=== PATIENT | female | born 1950 | race Caucasian/White ===

== ENCOUNTER 2017-08-27 21:22 | Inpatient (IN) | payer OTHER ==
[~2017-08-27] VITALS: Ht 172.7 cm; Wt 117.9 kg
[~2017-08-27 21:22] MED LIST: ALLEGRA-D 241 TABLET PO; AVENTYL,PAMELOR50 MG PO; CELEBREX200 MG PO; CLIMARA0.05 MG PO; DAPSONE100 MG PO; DAPSONE25 MG PO; DILAUDID2 MG PO; DULERA 200 MCG/13 GM IH; DURAGESIC100 MCG PO; FLONASE16 G1 NS; GRALISE600 MG PO; LEVAQUIN750 MG PO; LEVO-T50 MCG PO; LIDOCAINE700 MG TD; METHADONE10 MG PO; MISOPROSTOL200 MCG PO; NORTRIPTYLINE H50 MG PO; OMEPRAZOLE40 M1 PO; OPANA10 MG PO; PROAIR HFA8.5 GM IH; PROTONIX40 MG PO; TOPAMAX100 MG PO; TOPAMAX50 MG PO; TRAMADOL HCL200 MG PO; TRAMADOL HCL50 MG PO; ULTRAM ER200 MG PO; VAGIFEM10 MCG VG; VENTOLIN HFA18 GM IH
[2017-08-27 22:20] LABS: HEMATOCRIT 35.9 % (36.0-46.0); HEMOGLOBIN 12.1 G/DL (11.9-15.5); MCH 33.2 PG (29.0-34.0); MCHC 33.7 G/DL (30.0-36.0); MCV 98.6 FL (83-99); PLATELET COUNT 352 K/uL (156-360); RBC DIS.WIDTH-SD 43.4 % (39-53); RED BLOOD COUNT 3.64 M/uL (3.80-5.20); WHITE BLOOD COUNT 11.4 K/uL (4.1-10.2)
[2017-08-27 22:37] LABS: CHLORIDE 98 mEq/L (99-109); POTASSIUM 3.1 mEq/L (3.7-5.4); SODIUM 132 mEq/L (136-147)
[2017-08-27 22:40] LABS: ALBUMIN 4.3 g/dL (3.2-4.8)
[2017-08-27 22:42] LABS: GLUCOSE 125 mg/dL (70-99); TOTAL BILIRUBIN 0.4 mg/dL (0.0-1.0)
[2017-08-27 22:46] LABS: ALKALINE PHOSPHATASE 112 IU/L (3-129); CREATININE 0.8 mg/dL (0.6-1.3); GFR ESTIMATE (CALCULATED) > 59 mL/min/
[2017-08-27 22:47] LABS: AST (GOT) 21 IU/L (2-34); UREA NITROGEN (BUN) 9 mg/dL (9-23)
[2017-08-27 22:49] LABS: ALT (GPT) 26 IU/L (3-49)
[2017-08-27 23:50] LABS: BASE EXCESS -1.7 mEq/L (-3 to +3); CARBOXY HGB 0 % (0-5); COMMENTS - BLOOD GASES A+C+; DEVICE NC; METHEMOGLOBIN 43.1 % (0-1.5); O2 FLOW 4 L/MIN; PCO2 38 mm Hg (35-45); PO2 98 mm Hg (80-100); SITE RR; TOTAL RESP RATE 20 resp/min; pH 7.39 (7.35-7.45)
[2017-08-28] VITALS (18 sets, daily range): BP systolic 93–190; BP diastolic 61–111
[2017-08-28] MEDS ORDERED: NORTRIPTYLINE H75 MG PO (01:31)
[2017-08-28] MEDS ORDERED: GABAPENTIN300 MG PO (01:33)
[2017-08-28] MEDS ORDERED: FUROSEMIDE20 MG PO (01:33)
[2017-08-28] MEDS ORDERED: SODIUM CHLORIDE1 G1 PO ×2 (01:34→01:42)
[2017-08-28] MEDS ORDERED: PREDNISONE10 MG PO (01:34)
[2017-08-28] MEDS ORDERED: TOPIRAMATE100 MG PO (01:35)
[2017-08-28] MEDS ORDERED: SYMBICORT60 INHALAT IH (01:37)
[2017-08-28] MEDS ORDERED: ESTRING1 EACH VG (01:38)
[2017-08-28 03:34] LABS: BASE EXCESS -1.9 mEq/L (-3 to +3); BICARBONATE 23.7 mEq/L (22-26); CARBOXY HGB 0 % (0-5); pH 7.35 (7.35-7.45)
[2017-08-28 03:35] LABS: COMMENTS - BLOOD GASES A+C+; DEVICE NRBM; FI02 100 %; METHEMOGLOBIN 13.7 % (0-1.5); O2 FLOW 15 L/MIN; PCO2 43 mm Hg (35-45); PO2 439 mm Hg (80-100); SITE RR; TOTAL RESP RATE 18 resp/min
[2017-08-28 10:41] LABS: BASE EXCESS -1.2 mEq/L (-3 to +3); BICARBONATE 24.3 mEq/L (22-26); CARBOXY HGB 0 % (0-5); COMMENTS - BLOOD GASES +C; DEVICE NC; O2 FLOW 6 L/MIN; PCO2 43 mm Hg (35-45); PO2 131 mm Hg (80-100); SITE RR +A; TOTAL RESP RATE 20 resp/min; pH 7.36 (7.35-7.45)
[2017-08-28 10:42] LABS: METHEMOGLOBIN 24.9 % (0-1.5)
[2017-08-28 18:00] LABS: BASE EXCESS -0.7 mEq/L (-3 to +3); BICARBONATE 25.8 mEq/L (22-26); CARBOXY HGB 0 % (0-5); PO2 126 mm Hg (80-100); pH 7.32 (7.35-7.45)
[2017-08-28 18:01] LABS: PCO2 50 mm Hg (35-45)
[2017-08-28 18:02] LABS: COMMENTS - BLOOD GASES +C; DEVICE NC; METHEMOGLOBIN 10.5 % (0-1.5); O2 FLOW 6 L/MIN; SITE LR +A; TOTAL RESP RATE 18 resp/min
[2017-08-29] VITALS (22 sets, daily range): BP systolic 139–184; BP diastolic 74–129
[2017-08-29 05:14] LABS: BASE EXCESS 0.4 mEq/L (-3 to +3); CARBOXY HGB 0 % (0-5); PO2 108 mm Hg (80-100); pH 7.37 (7.35-7.45)
[2017-08-29 05:15] LABS: COMMENTS - BLOOD GASES A+C+; DEVICE NAS CAN; O2 FLOW 6 L/MIN; PCO2 45 mm Hg (35-45); SITE LEFT RADIAL; TOTAL RESP RATE 20 resp/min
[2017-08-29 05:44] LABS: BASOPHIL (%) 0.8 % (0-1); BASOPHIL COUNT 0.1 K/uL (0-0.1); EOSINOPHIL (%) 2.4 % (0-5); EOSINOPHIL COUNT 0.2 K/uL (0-0.3); HEMATOCRIT 32.7 % (36.0-46.0); HEMOGLOBIN 10.7 G/DL (11.9-15.5); IMMATURE GRANULOCYTE (%) 0.3 % (0.0-0.7); LYMPHOCYTE (%) 21.4 % (15-42); LYMPHOCYTE COUNT 1.3 K/uL (1.0-2.8); MCH 33.1 PG (29.0-34.0); MCHC 32.7 G/DL (30.0-36.0); MCV 101.2 FL (83-99); MONOCYTE (%) 8.1 % (3-12); MONOCYTE COUNT 0.5 K/uL (0-0.8); NEUTROPHIL COUNT 4.2 K/uL (1.8-6.4); PLATELET COUNT 293 K/uL (156-360); RBC DIS.WIDTH-CV 12.7 % (11.8-14.6); RBC DIS.WIDTH-SD 47.6 % (39-53); RED BLOOD COUNT 3.23 M/uL (3.80-5.20); WHITE BLOOD COUNT 6.3 K/uL (4.1-10.2)
[2017-08-29 06:00] LABS: CHLORIDE 101 MEQ/L (99-109); CREATININE 0.7 MG/DL (0.6-1.3); GFR ESTIMATE (CALCULATED) > 59 mL/min/; GLUCOSE 97 mg/dL (70-99); MAGNESIUM 2.1 mg/dl (1.3-2.7); PHOSPHORUS 3.8 mg/dL (2.5-4.9); SODIUM 134 MEQ/L (136-147); UREA NITROGEN (BUN) 11 mg/dL (9-23)
[2017-08-29 06:05] LABS: POTASSIUM 4.5 MEQ/L (3.7-5.4)
[2017-08-29 17:53] LABS: BASE EXCESS 3.2 mEq/L (-3 to +3); BICARBONATE 27.9 mEq/L (22-26); CARBOXY HGB 0 % (0-5); METHEMOGLOBIN 4.3 % (0-1.5); PCO2 42 mm Hg (35-45); pH 7.43 (7.35-7.45)
[2017-08-29 17:54] LABS: COMMENTS - BLOOD GASES +C; FI02 21 %; PO2 78 mm Hg (80-100); SITE RR +AA; TOTAL RESP RATE 20 resp/min
[2017-08-30] VITALS (15 sets, daily range): BP systolic 125–187; BP diastolic 76–113
[2017-08-30 06:23] LABS: BASOPHIL (%) 0.3 % (0-1); EOSINOPHIL (%) 1.3 % (0-5); EOSINOPHIL COUNT 0.1 K/uL (0-0.3); HEMATOCRIT 33.8 % (36.0-46.0); HEMOGLOBIN 11.2 G/DL (11.9-15.5); IMMATURE GRANULOCYTE (%) 0.3 % (0.0-0.7); LYMPHOCYTE (%) 17.8 % (15-42); LYMPHOCYTE COUNT 1.5 K/uL (1.0-2.8); MCH 32.7 PG (29.0-34.0); MCHC 33.1 G/DL (30.0-36.0); MCV 98.8 FL (83-99); MONOCYTE (%) 8.4 % (3-12); MONOCYTE COUNT 0.7 K/uL (0-0.8); NEUTROPHIL (%) 71.9 % (45-76); NEUTROPHIL COUNT 6.2 K/uL (1.8-6.4); PLATELET COUNT 323 K/uL (156-360); RBC DIS.WIDTH-CV 12.9 % (11.8-14.6); RBC DIS.WIDTH-SD 46.2 % (39-53); RED BLOOD COUNT 3.42 M/uL (3.80-5.20); WHITE BLOOD COUNT 8.6 K/uL (4.1-10.2)
[2017-08-30 06:58] LABS: ALBUMIN 3.9 G/DL (3.2-4.8); ALKALINE PHOSPHATASE 96 IU/L (3-129); ALT (GPT) 23 IU/L (3-49); AST (GOT) 21 IU/L (2-34); CHLORIDE 99 MEQ/L (99-109); CREATININE 0.6 MG/DL (0.6-1.3); GFR ESTIMATE (CALCULATED) > 59 mL/min/; GLUCOSE 100 mg/dL (70-99); MAGNESIUM 1.9 mg/dl (1.3-2.7); PHOSPHORUS 3.1 mg/dL (2.5-4.9); POTASSIUM 3.9 MEQ/L (3.7-5.4); SODIUM 134 MEQ/L (136-147); TOTAL BILIRUBIN 0.7 MG/DL (0.0-1.0); TOTAL PROTEIN 6.1 G/DL (6.4-8.3); UREA NITROGEN (BUN) 12 mg/dL (9-23)
[2017-08-30 08:17] LABS: BASE EXCESS 4.9 mEq/L (-3 to +3); BICARBONATE 30.4 mEq/L (22-26); CARBOXY HGB 0.6 % (0-5); METHEMOGLOBIN 2.2 % (0-1.5); PO2 66 mm Hg (80-100); pH 7.41 (7.35-7.45)
[2017-08-30 08:18] LABS: COMMENTS - BLOOD GASES A+C+; DEVICE RA; PCO2 48 mm Hg (35-45); SITE RR; TOTAL RESP RATE 18 resp/min
[2017-08-30 14:05] LABS: HEMATOCRIT 36.4 % (36.0-46.0); HEMOGLOBIN 11.9 G/DL (11.9-15.5); MCH 32.2 PG (29.0-34.0); MCHC 32.7 G/DL (30.0-36.0); MCV 98.4 FL (83-99); PLATELET COUNT 364 K/uL (156-360); RBC DIS.WIDTH-CV 13.2 % (11.8-14.6); RBC DIS.WIDTH-SD 47.9 % (39-53); RETIC HGB EQUIVALENT 35.6 (28-36); RETICULOCYTE COUNT 3.7 % (0.5-1.8); WHITE BLOOD COUNT 10.5 K/uL (4.1-10.2)
[2017-08-30 15:24] LABS: ABS NEUTROPHIL COUNT 9.8; ANISOCYTOSIS 1+; ATYPICAL LYMPHOCYTE 3.5 %; BASOPH.STIPPLING 1+; EOSINOPHIL ABS CT 0; HYPOCHROMASIA 1+; LYMPHOCYTES 1.8 % (15.0-45.0); MACROCYTES 1+; MONOCYTES 0.9 % (0-9.0); PLAT.SUFFICIENCY INCREASED; POIKILOCYTOSIS 1+; POLYCHROMASIA 1+; SEG.NEUTROPHILS 93.8 % (46.0-76.0)
[2017-08-31] VITALS: BP 169/82
[2017-08-31 02:00] VITALS: BP 180/89
[2017-08-31 04:00] VITALS: BP 185/97
[2017-08-31 05:59] LABS: BASE EXCESS 4.9 mEq/L (-3 to +3); BICARBONATE 29.9 mEq/L (22-26); CARBOXY HGB 0.9 % (0-5); COMMENTS - BLOOD GASES C+; FI02 21 %; METHEMOGLOBIN 1.4 % (0-1.5); PCO2 45 mm Hg (35-45); PO2 66 mm Hg (80-100); SITE RR; TOTAL RESP RATE 16 resp/min; pH 7.43 (7.35-7.45)
[2017-08-31 06:00] VITALS: BP 141/81
[2017-08-31 06:19] LABS: CHLORIDE 96 MEQ/L (99-109); CREATININE 0.6 MG/DL (0.6-1.3); GFR ESTIMATE (CALCULATED) > 59 mL/min/; GLUCOSE 107 mg/dL (70-99); POTASSIUM 3.8 MEQ/L (3.7-5.4); SODIUM 134 MEQ/L (136-147); UREA NITROGEN (BUN) 10 mg/dL (9-23)
[2017-08-31 08:00] VITALS: BP 144/78
[2017-08-31 12:00] VITALS: BP 140/78
[2017-08-31] MEDS ORDERED: NORVASC5 MG PO (14:10)
[2017-08-31 14:12] LABS: BASOPHIL (%) 0.2 % (0-1); EOSINOPHIL (%) 0.1 % (0-5); HEMATOCRIT 36.3 % (36.0-46.0); HEMOGLOBIN 12.4 G/DL (11.9-15.5); IMMATURE GRANULOCYTE (%) 0.4 % (0.0-0.7); LYMPHOCYTE (%) 5.9 % (15-42); LYMPHOCYTE COUNT 0.6 K/uL (1.0-2.8); MCH 33.5 PG (29.0-34.0); MCHC 34.2 G/DL (30.0-36.0); MCV 98.1 FL (83-99); MONOCYTE (%) 3.3 % (3-12); MONOCYTE COUNT 0.4 K/uL (0-0.8); NEUTROPHIL (%) 90.1 % (45-76); NEUTROPHIL COUNT 9.7 K/uL (1.8-6.4); PLATELET COUNT 369 K/uL (156-360); RBC DIS.WIDTH-CV 13.4 % (11.8-14.6); RBC DIS.WIDTH-SD 48.1 % (39-53); WHITE BLOOD COUNT 10.8 K/uL (4.1-10.2)
== END 2017-08-31 15:44 | disposition home or self-care (01) | DRG 918 ==
LOC: EME 21:22 → EDOF 08-28 03:13 → 4WEST 08-28 03:13 → ENRESERV 08-28 03:15 → 4WEST 08-28 04:46 → ENRESERV 08-30 10:19 → CANRESERV 08-30 13:39 → ENRESERV 08-30 13:39 → 4WEST 08-30 16:56
PROVIDERS: Emergency Medicine; Family Medicine; Internal Medicine; Specialist; Surgery
DX: T37.1X1A Poisoning by antimycobacterial drugs, accidental (unintentional), initial encounter (principal); F41.9 Anxiety disorder, unspecified; E03.9 Hypothyroidism, unspecified; E87.1 Hypo-osmolality and hyponatremia; J45.901 Unspecified asthma with (acute) exacerbation; D72.829 Elevated white blood cell count, unspecified; R00.0 Tachycardia, unspecified; K21.9 Gastro-esophageal reflux disease without esophagitis; G89.29 Other chronic pain; D74.9 Methemoglobinemia, unspecified; I10 Essential (primary) hypertension; Z98.1 Arthrodesis status; R23.0 Cyanosis; R09.02 Hypoxemia; Z96.653 Presence of artificial knee joint, bilateral; Y92.009 Unspecified place in unspecified non-institutional (private) residence as the place of occurrence of the external cause
CPT/HCPCS: 36600; 80048; 80053; 82803; 83010 90; 83615; 83735; 84100; 85007; 85025; 85025 91; 85027; 85046; 85060; 85610; 85730; 87641; 93005; 94640; 94640 76; 94799; 99202; 99281; 99285; J1650; J2405; J3010; J3480; J7512

== ENCOUNTER 2018-01-03 18:05 | Emergency (ER) | payer OTHER, MEDICARE ==
[~2018-01-03] VITALS: Ht 172.7 cm; Wt 111.0 kg
[~2018-01-03 18:05] MED LIST changes: +ESTRING1 EACH VG; +FUROSEMIDE20 MG PO; +GABAPENTIN300 MG PO; +NORTRIPTYLINE H75 MG PO; +NORVASC5 MG PO; +PREDNISONE10 MG PO; +SODIUM CHLORIDE1 G1 PO; +SYMBICORT60 INHALAT IH; +TOPIRAMATE100 MG PO
[2018-01-03] MEDS ORDERED: SKELAXIN800 MG PO (19:04)
[2018-01-03] MEDS ORDERED: PERCOCET 5/31 TABLET PO (19:04)
[2018-01-03] MEDS ORDERED: MOBIC15 MG PO (19:04)
[2018-01-03 21:17] VITALS: BP 141/81
== END 2018-01-03 21:18 | disposition home or self-care (01) ==
LOC: EME 18:05
DX: S32.010A Wedge compression fracture of first lumbar vertebra, initial encounter for closed fracture (principal); W17.89XA Other fall from one level to another, initial encounter; Y93.01 Activity, walking, marching and hiking; Y92.008 Other place in unspecified non-institutional (private) residence as the place of occurrence of the external cause; S39.012A Strain of muscle, fascia and tendon of lower back, initial encounter; J30.9 Allergic rhinitis, unspecified; Z98.1 Arthrodesis status; Z88.5 Allergy status to narcotic agent; Z88.0 Allergy status to penicillin; Z91.040 Latex allergy status
CPT/HCPCS: 72100; 99281; 99283